=== PATIENT | female | born 1970 | race American Indian/Alaskan Native ===

== ENCOUNTER 2019-05-12 14:53 | Outpatient (CLI) | payer OTHER ==
--- NOTE | 2019-05-12 15:15 | XRay Report ---
CHEST 2 VIEWS INDICATION: COUGH. COMPARISON: None. FINDINGS: Support devices: None. Heart: Normal. Pulmonary vasculature: Normal. Lungs/pleura: Normally expanded and clear lungs. No pleural effusion. No pneumothorax. Additional findings: None. IMPRESSION: Normal chest. Signer Name: Ulises Neely MD Signed: 05/12/2019 3:11 PM Workstation Name: [id number]
== END 2019-05-12 14:54 | disposition home or self-care (01) ==
LOC: SPVIMAG 14:53
PROVIDERS: ATTEND Internal Medicine Hematology
DX: R05 Cough (principal); D70.9 Neutropenia, unspecified; D75.1 Secondary polycythemia
CPT/HCPCS: 71046